=== PATIENT | female | born 1990 | race Caucasian/White ===

== ENCOUNTER 2016-06-19 15:20 | Emergency (ER) | payer MEDICAID ==
[~2016-06-19] VITALS: Ht 162.6 cm; Wt 114.0 kg
[~2016-06-19 15:20] MED LIST: BACT800T5 PO; METF500T PO
[2016-06-19 15:22] VITALS: BP 135/102; PULSE 88; RESP 12; TEMP 98.2; O2SAT 100
--- NOTE | 2016-06-19 16:53 | PD ---
HPI Chief Complaint: Musculoskeletal Complaint Time Seen by Provider: 16:53 Travel History International Travel<30 days: No Contact w/Intl Traveler<30days: No Traveled to known affect area: No History of Present Illness HPI 26-year-old female presents to the emergency Department with complaint of right hand pain after tripping and falling yesterday and catching herself with her hand. Denies paresthesias, loss of sensation to the affected extremity. Reports decreased prosthetic dentist strength secondary to pain. Pain is to the dorsal aspect just below the third digit. She has iced the area with some relief of pain. Has not taken any medications or tried any other treatments to review her symptoms. Denies fever, chills, nausea, vomiting. Pain is aggravated with movement and palpation. No known relieving factors. Allergies to latex and repair. Does not have primary care provider. No other modifying factors or associated signs and symptoms. PFSH Past Medical History Hx Anticoagulant Therapy: No ADHD: No Anemia: Yes Anxiety: Yes Depression: Yes Cancer: No Cardiovascular Problems: No Chemotherapy: No Cerebrovascular Accident: No Diabetes: No (GESTATIONAL) Diminished Hearing: No Endocrine: Yes Genitourinary: Yes Headaches: Yes Immune Disorder: No Musculoskeletal: Yes (FEET ARE SORE FROM WALKING.) Neurologic: Yes Psychiatric: Yes (PTSD, Depression) Reproductive: No Respiratory: No Immunizations Current: Yes Migraines: Yes Seizures: No Thyroid Disease: No Ulcer: No Menopausal: No : 0 Past Surgical History Appendectomy: No Section: Yes Cholecystectomy: No Hysterectomy: No Other Surgery: Yes (PILONITAL CYST REMOVED) Social History Alcohol Use: No Tobacco Use: No Substance Use: No Allergies-Medications (Allergen,Severity, Reaction): Coded Allergies: Latex (Verified Allergy, Unknown, Hives, 06/19/16) Uncoded Allergies: ROOT BEER (Allergy, Severe, Rash, 05/28/13) THROAT SWELLING Reported Meds & Prescriptions Reported Meds & Active Scripts Active Ibuprofen 800 Mg Tab 800 Mg PO Q6HR PRN Bactrim DS (Sulfamethoxazole-Trimethoprim) 800-160 Mg Tab 1 Tab PO BID Reported Metformin (Metformin HCl) 500 Mg Tab 500 Mg PO DAILY With a meal Review of Systems Except as stated in HPI: all other systems reviewed are Neg Physical Exam Narrative GENERAL: Well-nourished, well-developed patient, in no acute distress SKIN: Warm and dry. HEAD: Atraumatic. Normocephalic. EYES: Pupils equal and round. No scleral icterus. No injection or drainage. ENT: Mucosa pink and moist. Airway patent. NECK: Trachea midline. CARDIOVASCULAR: Regular rate. RESPIRATORY: No accessory muscle use. GASTROINTESTINAL: Obese. MUSCULOSKELETAL: Right hand with decreased prosthetic dentist strength secondary to pain; tenderness on palpation to the dorsal aspect to the third metacarpal area; with mild edema and ecchymosis; without erythema; no obvious deformity; sensory intact to all fingers; fingers with full range of motion in all finger joints. Right wrist with full range of motion without tenderness on palpation; without erythema, edema. Right upper extremity supple and non-tense with 2+ radial pulse and sensory intact and without erythema or edema. No obvious deformities. No clubbing. No cyanosis. NEUROLOGICAL: Awake and alert. Oriented 3. No obvious cranial nerve deficits. Motor grossly within normal limits. Normal speech. PSYCHIATRIC: Appropriate mood and affect; insight and judgment normal. Data Data Last Documented VS Vital Signs Date Time Temp Pulse Resp B/P Pulse Ox O2 Delivery O2 Flow Rate FiO2 06/19/16 15:22 98.2 88 12 135/102 100 Room Air Orders Hand, Complete ([id number]) (06/19/16 16:53) Ibuprofen (Motrin) (06/19/16 17:00) MDM Medical Decision Making Medical Screen Exam Complete: Yes Emergency Medical Condition: Yes Medical Record Reviewed: Yes Differential Diagnosis Hand sprain, hand fracture, dislocation Narrative Course 26-year-old female with right hand injury. Rate approximately supplementals with 2+ radial pulse and sensory intact without erythema or edema. Ibuprofen administered in the ER. Right hand x-ray ordered. 1732: Right hand x-ray concludes Negative trauma study with no evidence of fracture or malalignment. Kvng bandage applied. Ibuprofen prescribed for home. Patient is medically cleared and stable for discharge. Discussed reasons to return to the emergency department. Instructed patient to follow up with primary care provider. Patient agrees with treatment plan. The patients vital signs are stable and the patient is stable for outpatient follow-up and treatment. Patient discharged home, stable and in no acute distress. Diagnosis Primary Impression: Sprain of right hand Qualified Code: S63.91XA - Sprain of right hand, initial encounter Referrals: Primary Care Physician Patient Instructions: General Instructions, Hand Sprain (ED) Departure Forms: Tests/Procedures, Work Release Enter return to work date: Jun 22, 2016 Additional Instructions: Tylenol or ibuprofen as directed and as needed to reduce pain Rest, ice, compress, and elevate extremity to decrease pain and inflammation Kvng wrap for support Splint for support Avoid aggravating activity; increase activity as tolerated Follow-up with primary care provider Return to the emergency department immediately with worsening symptoms Med/Other Pt SpecificInfo: Prescription(s) given Scripts Ibuprofen 800 Mg [id number] Mg PO Q6HR PRN (PAIN) #30 TAB Ref 0 Prov:Miguelina Quintana 06/19/16 Disposition: 01 DISCHARGE HOME Condition: Stable Miguelina Quintana Jun 19, 2016 16:53
[2016-06-19] MEDS ORDERED: IBUPROFEN 800 MG TAB PO ONE (17:00)
[2016-06-19] MEDS ORDERED: IBUP800T23 PO (17:00)
--- NOTE | 2016-06-19 17:28 | RADRPT ---
EXAM DATE/TIME: 06/19/2016 16:53 [facility] COMPARISON: No previous studies available for comparison. INDICATIONS : Trauma/ fall injuring the dorsal side of right hand. MEDICAL HISTORY : None. SURGICAL HISTORY : None. ENCOUNTER: Initial ACUITY: 1 day PAIN SCORE: 7/10 LOCATION: Right Hand FINDINGS: Three view examination of the right hand demonstrates no soft tissue swelling, dislocation, or fractu re. The carpal bones appear intact. The interphalangeal and metacarpophalangeal joints are intact. Bony mineralization is normal. CONCLUSION: Negative trauma study with no evidence of fracture or malalignment. Ayaan Saldivar MD on June 19, 2016 at 17:27 Board Certified Radiologist. This report was verified electronically.
== END 2016-06-19 17:47 | disposition home or self-care (01) ==
LOC: NEPB 15:20
DX: S63.91XA Sprain of unspecified part of right wrist and hand, initial encounter (principal); W01.0XXA Fall on same level from slipping, tripping and stumbling without subsequent striking against object, initial encounter; D64.9 Anemia, unspecified
CPT/HCPCS: 73130; 99283